=== PATIENT | male | born 1980 | race Caucasian/White ===

== ENCOUNTER 2021-04-17 18:12 | Emergency (ER) | payer OTHER ==
[~2021-04-17] VITALS: Ht 175.3 cm; Wt 74.4 kg
[2021-04-17 19:09] VITALS: BP 160/95
[2021-04-17] MEDS ORDERED: KETOROLAC 30 MG/ML VIAL IM ONE (21:20)
[2021-04-17] MEDS ORDERED: HYDROcodone/APAP 5/325 MG 1 TAB TAB PO ONE (21:20)
[2021-04-17 21:34] LABS: BASOPHILS # (AUTO) 0.1 K/uL (0.00-0.22); BASOPHILS % (AUTO) 0.3 % (0.0-2.0); EOSINOPHILS % (AUTO) 0.2 % (0.0-4.0); HEMATOCRIT 40.5 % (36-52); HEMOGLOBIN 14.1 g/dL (12.0-18.0); LYMPHOCYTES # (AUTO) 1.7 K/uL (2.0-11.5); LYMPHOCYTES % (AUTO) 9.2 % (20.5-51.1); MEAN CORPUSCULAR HEMOGLOBIN 32 pg (27-31); MEAN CORPUSCULAR HGB CONC 35 g/dL (33-37); MEAN CORPUSCULAR VOLUME 90.3 fL (80-94); MONOCYTES # (AUTO) 1.2 K/uL (0.8-1.0); MONOCYTES % (AUTO) 6.4 % (1.7-9.3); NEUTROPHILS # (AUTO) 15.2 K/uL (1.8-7.7); NEUTROPHILS % (AUTO) 83.9 % (42.2-75.2); PLATELET COUNT (AUTO) 366 K/uL (140-450); RED BLOOD CELL COUNT(AUTO) 4.48 MIL/uL (4.20-6.10); WHITE BLOOD COUNT (AUTO) 18.1 K/uL (4.8-10.8)
[2021-04-17 21:52] LABS: ANION GAP 13.6 (8-16); CARBON DIOXIDE 26.3 mmol/L (21-32); CREATININE 1.1 mg/dL (0.6-1.3); POTASSIUM 3.9 mmol/L (3.5-5.1)
[2021-04-17] MEDS ORDERED: KETOROLAC 30 MG/ML VIAL ONE (22:30)
[2021-04-17] MEDS ORDERED: HYDROcodone/APAP 5/325 MG 1 TAB TAB ONE ×2 (22:33→22:41)
[2021-04-17] MEDS ORDERED: ACET-10509 PO (22:54)
[2021-04-17] MEDS ORDERED: SULF-59 PO (22:54)
[2021-04-17] MEDS ORDERED: NAPR-54 PO (22:54)
[2021-04-17] MEDS ORDERED: SULFAMETH/TRIMETH DS 800/160MG 1 TAB PO ONE (22:55)
--- NOTE | 2021-04-17 23:14 | NUR ---
d/c without accepting paperwork
== END 2021-04-17 23:14 | disposition home or self-care (01) ==
LOC: MED 18:12
DX: L03.113 Cellulitis of right upper limb (principal); M79.671 Pain in right foot; F15.90 Other stimulant use, unspecified, uncomplicated; Z88.0 Allergy status to penicillin; Z59.00 Homelessness unspecified; Z79.899 Other long term (current) drug therapy
CPT/HCPCS: 36415; 73080; 80048; 85025; 96372; 99284; J1885

== ENCOUNTER 2021-04-19 09:50 | Emergency (ER) | payer OTHER ==
[~2021-04-19] VITALS: Ht 177.8 cm; Wt 68.0 kg
[~2021-04-19 09:50] MED LIST: ACET-10509 PO; NAPR-54 PO; SULF-59 PO
[2021-04-19 10:20] VITALS: BP 96/74
[2021-04-19] MEDS ORDERED: KETOROLAC 60 MG/2 ML VIAL IM ONE (11:10)
[2021-04-19] MEDS ORDERED: cefTRIAXone 1,000 MG in LIDOCAINE MPF 1% 2.1 ML IM ONE (11:20)
[2021-04-19] MEDS ORDERED: SULF-59 PO (11:44)
[2021-04-19] MEDS ORDERED: IBUP-2213 PO (11:44)
[2021-04-19] MEDS ORDERED: LIDOCAINE MPF 1% 0 ML ONE (11:45)
[2021-04-19] MEDS ORDERED: cefTRIAXone 1,000 MG VIAL ONE (11:45)
[2021-04-19] MEDS ORDERED: SULFAMETH/TRIMETH DS 800/160MG 1 TAB PO ONE (11:50)
[2021-04-19 12:09] VITALS: BP 108/71
--- NOTE | 2021-04-19 12:09 | NUR ---
Patient discharged with v/s stable. Written and verbal after care instructions given FOR CELLULITIS and explained. Patient alert, oriented and verbalized understanding of instructions. Ambulatory with steady gait. All questions addressed prior to discharge. ID band removed. Patient advised to follow up with PMD. Rx of BACTRIM AND MOTRIN given. Patient educated on indication of medication including possible reaction and side effects. Opportunity to ask questions provided and answered.
== END 2021-04-19 12:09 | disposition home or self-care (01) ==
LOC: MED 09:50
DX: L03.113 Cellulitis of right upper limb (principal); F17.200 Nicotine dependence, unspecified, uncomplicated; F15.90 Other stimulant use, unspecified, uncomplicated; F11.90 Opioid use, unspecified, uncomplicated; Z88.0 Allergy status to penicillin; Z79.899 Other long term (current) drug therapy
CPT/HCPCS: 96372; 99283; J1885; J0696; J2001

== ENCOUNTER 2021-07-02 20:17 | Emergency (ER) | payer OTHER ==
[~2021-07-02] VITALS: Ht 177.8 cm; Wt 74.4 kg
[~2021-07-02 20:17] MED LIST changes: +IBUP-2213 PO
[2021-07-02 20:38] VITALS: BP 135/78
--- NOTE | 2021-07-02 21:30 | NUR ---
PT LEFT WITHOUT BEING SEEN AT THIS TIME.
--- NOTE | 2021-07-02 21:30 | NUR ---
PATIENT LEFT WITHOUT BEING SEEN BY DR. SZYMANSKI. NO FURTHER CARE PROVIDED FOR PATIENT.
== END 2021-07-02 21:30 | disposition left against medical advice (07) ==
LOC: MED 20:17
DX: Z53.21 Procedure and treatment not carried out due to patient leaving prior to being seen by health care provider (principal)

== ENCOUNTER 2022-04-12 00:46 | Emergency (ER) | payer OTHER ==
[~2022-04-12] VITALS: Ht 175.3 cm; Wt 74.8 kg
[2022-04-12 01:00] VITALS: BP 100/79
--- NOTE | 2022-04-12 01:03 | NUR ---
TO LOBBY A/W BED AMBULATORY
[2022-04-12] MEDS ORDERED: cefTRIAXone 1,000 MG in LIDOCAINE MPF 1% 2.1 ML IM ONE (01:40)
--- NOTE | 2022-04-12 02:00 | NUR ---
SEEN AND EXAMINED BY STEPHANIE
[2022-04-12] MEDS ORDERED: cefTRIAXone 1,000 MG VIAL ONE (02:02)
[2022-04-12] MEDS ORDERED: LIDOCAINE MPF 1% 0 ML ONE (02:03)
--- NOTE | 2022-04-12 02:07 | NUR ---
PATIENT ELOPED FROM FACILITY. DISCHARGE INSTRUCTIONS NOT GIVEN TO PATIENT. DR. PAPPAS NOTIFIED.
--- NOTE | 2022-04-12 02:12 | NUR ---
CALLED FOR THE SECOND TIME NO RESPONSE
--- NOTE | 2022-04-12 02:17 | NUR ---
CALLED FOR THE THIRD TIME, NO RESPONSE
== END 2022-04-12 02:07 | disposition left against medical advice (07) ==
LOC: MED 00:46
DX: J20.9 Acute bronchitis, unspecified (principal); F17.210 Nicotine dependence, cigarettes, uncomplicated; Z88.0 Allergy status to penicillin; Z79.899 Other long term (current) drug therapy
CPT/HCPCS: 71045; 99283; J0696; J2001